=== PATIENT | female | born 1960 | race Caucasian/White ===

== ENCOUNTER → 2017-07-13 | Emergency (ER) | payer OTHER ==
[~2017-07-13] VITALS: Ht 165.1 cm; Wt 73.9 kg
[~2017-07-13] MED LIST: GLIMEPIRIDE1 MG; METFORMIN HCL500 M2; OSEL75CA PO; PREVACID15 MG; SYNTHROID50 MCG; TUSSI PRES-B L120 M1 PO; VASOTEC2.5 MG; ZOCOR20 MG
== END | disposition home or self-care (01) ==
LOC: ER 11:40
DX: B34.9 Viral infection, unspecified (principal)